=== PATIENT | male | born 1970 | race Caucasian/White ===

== ENCOUNTER 2019-02-28 11:25 | Outpatient (CLI) | payer MEDICARE, OTHER ==
--- NOTE | 2019-02-28 11:54 | RAD ---
EXAM: XR Lumbar Spine Bending Min 4V PROVIDED CLINICAL HISTORY: Back pain. No history of injury. COMPARISON: None available. FINDINGS: There are 5 nonrib-bearing lumbar-type vertebral bodies. Scattered osteophytes are seen throughout th e lumbar spine. There is narrowing of the L3-4 intervertebral disc space and to a lesser extent the L4-5 and L5-S1 intervertebral disc spaces. The vertebral body heights are within normal limits. No fr acture or subluxation is seen. Mild facet degenerative changes are seen in the lower lumbar spine. Surgical clips overlie the right upper quadrant. IMPRESSION: Degenerative changes in the cervical spine greatest at the L3-4 level. No fracture or subluxation is seen.
== END 2019-02-28 11:26 | disposition home or self-care (01) ==
LOC: NAV RAD 11:25
PROVIDERS: ATTEND Family Medicine
DX: M54.5 Low back pain (principal); G89.29 Other chronic pain; M47.816 Spondylosis without myelopathy or radiculopathy, lumbar region; M47.812 Spondylosis without myelopathy or radiculopathy, cervical region
CPT/HCPCS: 72120

== ENCOUNTER 2019-03-26 08:53 | Emergency (ER) | payer MEDICARE, MEDICAID ==
--- NOTE | 2019-03-26 10:28 | RAD ---
SINGLE VIEW CHEST AND LEFT RIB SERIES: Date: 03/26/19 HISTORY: Bryant a pop sitting on a chair with left chest and back pain. Shortness of breath. FINDINGS: A single view of the chest and 3 views of the left ribs were performed. There appears to be a remote healed posterior 6th rib fracture. No obvious acute displaced rib fracture is seen. No underlying ple ural thickening or pneumothorax seen. The cardiomediastinal silhouette is normal in size. There is no evidence of consolidation, mass, or p leural effusion. IMPRESSION: Remote left rib fracture. An acute on chronic fracture cannot be entirely excluded. POS: [facility]
== END 2019-03-26 10:10 | disposition home or self-care (01) ==
LOC: NAV ERS 08:53
DX: S23.41XA Sprain of ribs, initial encounter (principal); J44.9 Chronic obstructive pulmonary disease, unspecified; F17.210 Nicotine dependence, cigarettes, uncomplicated; Z79.899 Other long term (current) drug therapy; Z79.51 Long term (current) use of inhaled steroids; X50.1XXA Overexertion from prolonged static or awkward postures, initial encounter

== ENCOUNTER 2019-08-23 11:43 | Outpatient (CLI) | payer MEDICARE, OTHER ==
--- NOTE | 2019-08-23 12:12 | RAD ---
Exam: Chest PA and lateral: HISTORY: Left rib pain COMPARISON: 04/24/2019 FINDINGS: Marked hyperinflation and chronic lung changes with some patchy chronic linear and interstitial paren chymal changes in the left chest, stable. No significant new process. No pneumonia, edema or other active disease. IMPRESSION: Stable hyperinflation and chronic lung changes. No significant new process.
== END 2019-08-23 11:44 | disposition home or self-care (01) ==
LOC: NAV RAD 11:43
PROVIDERS: ATTEND Student in an Organized Health Care Education/Training Program
DX: R07.81 Pleurodynia (principal); R09.1 Pleurisy; J98.4 Other disorders of lung
CPT/HCPCS: 71046

== ENCOUNTER 2019-08-28 10:12 | Emergency (ER) | payer MEDICARE, OTHER ==
[2019-08-28 10:55] LABS: #Basophils 0.1 thou/uL (0.0-0.2); #Eosinphils 0.1 thou/uL (0.0-0.7); #Lymphocytes 1.3 thou/uL (1.20-3.40); #Monocytes 0.7 thou/uL (0.11-0.59); %Basophils 0.7 % (0.0-1.0); %Lymphocytes 14.7 % (21.0-51.0); %Monocytes 7.1 % (0.0-10.0); %Neutrophils 76.5 % (42.0-75.0); Hemoglobin 16.1 g/dL (14.0-18.0); Mean Corpuscular HGB CONC 31.6 g/dL (32.0-36.0); Mean Corpuscular Hemoglobin 29.5 pg (27.0-31.0); Mean Corpuscular Volume 93.1 fL (78.0-98.0); Mean Platelet Volume 5.3 fL (7.4-10.4); Platelet Count 383 thou/uL (130-400); RBC Distribution Width 12.8 % (11.5-14.5); Red Blood Cell (RBC) Count 5.47 mill/uL (4.70-6.10); White Blood Cell (WBC) Count 9.1 thou/uL (4.8-10.8)
[2019-08-28 11:08] LABS: ALT (SGPT) 16 U/L (8-55); AST (SGOT) 19 U/L (5-34); Albumin 4.3 g/dL (3.5-5.0); Alkaline Phosphatase 115 U/L (40-110); Anion Gap 15 mmol/L (10-20); BUN (Urea Nitrogen) 10 mg/dL (8.9-20.6); Bilirubin, Total 0.5 mg/dL (0.2-1.2); Calc. Creatinine Clearance 0 mL/min (70-130); Calcium 9.7 mg/dL (7.8-10.44); Carbon Dioxide 28 mmol/L (22-29); Chloride 99 mmol/L (98-107); Estimated GFR-MDRD Greater than 90; Globulin 3.7 g/dL (2.4-3.5); Glucose 93 mg/dL (70-105); Potassium 4.5 mmol/L (3.5-5.1); Sodium 137 mmol/L (136-145)
== END 2019-08-28 10:56 | disposition home or self-care (01) ==
LOC: NAV ERS 10:12
DX: T18.108A Unspecified foreign body in esophagus causing other injury, initial encounter (principal); J44.9 Chronic obstructive pulmonary disease, unspecified; Z79.51 Long term (current) use of inhaled steroids; Z79.899 Other long term (current) drug therapy; Z79.1 Long term (current) use of non-steroidal anti-inflammatories (NSAID); F17.210 Nicotine dependence, cigarettes, uncomplicated
CPT/HCPCS: 80053; 85025; 93005; 94760